=== PATIENT | female | born 1955 | race Caucasian/White ===

== ENCOUNTER 2019-12-18 11:49 | Outpatient (CLI) | payer OTHER, SELFPAY ==
--- NOTE | ~2019-12-18 | XR_ITS ---
EXAMINATION: XR chest 2V DATE: 12/18/2019 12:27 INDICATION: Cough and chest tightness TECHNIQUE: PA and lateral views of the chest are obtained. COMPARISON: None available FINDINGS: The lungs are free of acute opacities. There is no pleural effusion or pneumothorax. The ca rdiomediastinal silhouette is normal. There is mild thoracic spondylosis. Surgical clips in the right upper quadrant are likely from prior cholecystectomy. IMPRESSION: 1. No acute cardiopulmonary abnormality. Reviewed, dictated and finalized at location A.
--- NOTE | 2019-12-18 12:09 | ECG_ITS ---
Measurements Intervals [place] Rate: 62 P: 56 NM: 142 QRS: 80 QRSD: 90 T: 56 QT: 381 QTc: 390 Interpretive Statements SINUS RHYTHM NORMAL ECG Electronically Signed On 12-18-2019 12:24:29 CDT by Chuy Nettles D.O.
== END 2019-12-18 11:50 | disposition home or self-care (01) ==
LOC: ANHCARD 11:57
PROVIDERS: PCP Family Medicine; Visit Provider Nurse Practitioner Family
DX: R05 Cough (principal); R07.9 Chest pain, unspecified
CPT/HCPCS: 71046; 93005